=== PATIENT | male | born 1955 | race Caucasian/White ===

== ENCOUNTER → 2017-07-26 | Outpatient (CLI) | payer OTHER | END | disposition home or self-care (01) | LOC: RADMRIMAIN 15:28 | PROVIDERS: ATTEND Family Medicine | DX: Z53.9 Procedure and treatment not carried out, unspecified reason (principal) ==

== ENCOUNTER 2021-07-02 17:17 | Emergency (ER) | payer BC, OTHER ==
[2021-07-02 17:23] VITALS: TEMP 98
[2021-07-02] MEDS ORDERED: MORPHINE SULFATE 4 MG/ML SYRINGE IM STA (17:43)
[2021-07-02] MEDS ORDERED: LIDOCAINE 1% INJ 10MG/ML (5 ML VIAL-PF) SQ ONE (17:45)
--- NOTE | 2021-07-02 18:08 | ED ---
Wound/Laceration HPI - General Chief Complaint: Wound/Laceration Stated Complaint: L leg/knee lac Time Seen by Provider: 07/02/21 17:24 Source: patient Mode of arrival: ambulatory Limitations: no limitations - History of Present Illness Initial Comments: Patient is a 65-year-old male who presents for evaluation of left knee laceration. Patient states he was using a chainsaw to cut trees in his yard when he lowered the chainsaw while it was idling. Patient states the blade was brand-new. He denies blood thinner use. He denies numbness and tingling of the left lower extremity. He states that he has been able to walk without significant pain or limitation. Patient is adamant that his last tetanus was less than 5 years ago. He has no other concerns. He denies history of MRSA. - Related Data Previous Rx's Medication Instructions Recorded Cephalexin [Keflex] 500 mg PO Q6HR 7 Days #28 cap 07/02/21 HYDROcodone/APAP 10-325MG [Eastham 1 tab PO Q6H PRN #12 tab 07/02/21 10-325] Allergies Allergy/AdvReac Type Severity Reaction Status Date / Time No Known Allergies Allergy Verified 07/02/21 17:23 Review of Systems ROS Statement: Those systems with pertinent positive or pertinent negative responses have been documented in the HPI. ROS Other: All systems not noted in ROS Statement are negative. Past Medical History Past Medical History: Pneumonia Additional Past Medical History / Comment(s): RECENT IP ADMISSION FOR BOWEL OBSTRUCTION IN NOV 25, 2014 ([facility]). Pneumonia 10 years ago. . History of Any Multi-Drug Resistant Organisms: None Reported Past Surgical History: Tonsillectomy Past Anesthesia/Blood Transfusion Reactions: No Reported Reaction Past Psychological History: No Psychological Hx Reported Smoking Status: Never smoker Past Alcohol Use History: Occasional Past Drug Use History: None Reported - Past Family History Mother Family Medical History: Osteoarthritis (OA) Additional Family Medical History / Comment(s): mom was pretty healthy not much known Father Family Medical History: Cancer, Prostate Disorder Additional Family Medical History / Comment(s): prostate cancer General Exam Limitations: no limitations General appearance: alert, in no apparent distress Head exam: Present: atraumatic, normocephalic, normal inspection Eye exam: Present: normal appearance, PERRL, EOMI. Absent: scleral icterus, conjunctival injection, periorbital swelling Respiratory exam: Present: normal lung sounds bilaterally. Absent: respiratory distress, wheezes, rales, rhonchi, stridor Cardiovascular Exam: Present: regular rate, normal rhythm, normal heart sounds. Absent: systolic murmur, diastolic murmur, rubs, gallop, clicks GI/Abdominal exam: Present: soft, normal bowel sounds. Absent: distended, tenderness, guarding, rebound, rigid Extremities exam: Present: other (Large irregular laceration over the left knee. Fibrous capsule is noted with 1 cm interruption superiorly) Neurological exam: Present: alert, oriented X3, CN II-XII intact Psychiatric exam: Present: normal affect, normal mood Skin exam: Present: warm, dry, intact, normal color. Absent: rash Course Vital Signs 07/02/21 17:21 Temperature 98 F Pulse Rate 110 H Respiratory 20 Rate Blood Pressure 173/89 O2 Sat by Pulse 96 Oximetry Procedures - Laceration Laceration #1 Consent Obtained: verbal consent Indication: laceration Site: other (Left knee) Size (cm): 10 Description: irregular Depth: involves muscle layer Anesthetic Used: lidocaine 1%, with epi Pre-repair: wound explored, irrigated extensively Type of Sutures: nylon Size of Sutures: 4-0 Number of Sutures: 28 Technique: simple, interrupted Patient Tolerated Procedure: well, no complications Medical Decision Making - Medical Decision Making This is a 65-year-old male who presents for evaluation of left knee laceration. Thorough history and examination were performed. Patient denies numbness and tingling. He is adamant that his last tetanus was less than 5 years ago. The laceration is approximately 8 cm long. The joint capsule is visualized with approximately 1 cm interruption superiorly. He is neurovascularly intact. There is full range of motion with knee flexion and extension. Left knee x-ray was obtained to rule out fracture or foreign body which was negative. Case discussed with Dr. Jay who recommends I close the wound with stitches and discharge with antibiotics. Patient given first dose of Keflex in the emergency department. The wound was explored and irrigated extensively with sterile water and Betadine. Deep structures are intact. It was approximated with 28 stitches. Patient tolerated procedure well with no complications. The wound was covered with petroleum dressing. padding, and Kerlix gauze. It was then wrapped in Roland bandage. Patient was placed in a knee immobilizer until orthopedic evaluation. He'll be discharged with Keflex and a short course of E[place]tham. He is instructed to follow-up with patient services specialist in 1-2 days. Wound care education was provided. Return parameters were discussed. Patient verbalizes understanding and is agreeable to this plan. Dr. Bishop is my attending. Disposition Clinical Impression: Laceration Disposition: HOME SELF-CARE Condition: Good Instructions (If sedation given, give patient instructions): Care For Your Stitches (ED), Laceration (ED) Additional Instructions: Please take antibiotic as directed. Keep wound clean and dry. You should change the gauze no sooner than 24 hours and no later than 48 hours. Please fo llow-up with patient services specialist in 1-2 days. Keep the knee immobilizer on until orthopedic evaluation. You may take it off when resting the knee however please wear during sleep. Return to the emergency department if you experience new, concerning, or worsening symptoms. Prescriptions: Cephalexin [Keflex] 500 mg PO Q6HR 7 Days #28 cap HYDROcodone/APAP 10-325MG [[place] 10-325] 1 tab PO Q6H PRN #12 tab PRN Reason: pain Is patient prescribed a controlled substance at d/c from ED?: No Referrals: Gibson Gould MD [Primary Care Provider] - 1-2 days Eber Jay MD [STAFF PHYSICIAN] - 1-2 days Time of Disposition: 21:16
--- NOTE | 2021-07-02 18:11 | XR ---
Left knee HISTORY: Chainsaw injury. COMPARISON: None. TECHNIQUE: 3 views left knee were obtained. FINDINGS: There is a large soft tissue defect in the anterior soft tissues adjacent to the patella. The osseous structures are intact and there is no cortical disruption or periosteal reaction. There i s no radiopaque foreign body. There is no fracture or dislocation. IMPRESSION: Large soft tissue defect in the anterior knee but no underlying osseous abnormality or radiopaque for eign body.
[2021-07-02] MEDS ORDERED: CEPHALEXIN 500 MG CAP PO STA (18:18)
[2021-07-02] MEDS ORDERED: ACET/COD 300 MG/30 MG STARTER PACK 6 TAB BTL PO STA (21:46)
[2021-07-02 22:51] VITALS: BP 112/79; PULSE 87; RESP 18
== END 2021-07-02 22:00 | disposition home or self-care (01) ==
LOC: EC 17:17
DX: S81.012A Laceration without foreign body, left knee, initial encounter (principal); W29.3XXA Contact with powered garden and outdoor hand tools and machinery, initial encounter; Y92.096 Garden or yard of other non-institutional residence as the place of occurrence of the external cause
CPT/HCPCS: 73562; 12004; 96372; 99283; L1830; J2270; J2001